=== PATIENT | female | born 1985 | race Caucasian/White ===

== ENCOUNTER 2020-08-27 10:47 | Emergency (ER) | payer OTHER ==
[~2020-08-27] VITALS: Ht 170.2 cm; Wt 49.9 kg
[2020-08-27 11:10] VITALS: BP 101/63
[2020-08-27] MEDS ORDERED: BACTRIM DS TAB1 EAC1 PO (11:16)
[2020-08-27 12:32] LABS: URINE BILIRUBIN NEGATIVE (Negative); URINE BLOOD NEGATIVE (Negative); URINE CLARITY CLEAR; URINE COLOR YELLOW; URINE GLUCOSE-RANDOM* NEGATIVE (Negative); URINE KETONES NEGATIVE (Negative); URINE LEUKOCYTES-REFLEX NEGATIVE (Negative); URINE NITRITE-REFLEX NEGATIVE (Negative); URINE PROTEIN (DIPSTICK) NEGATIVE (Negative); URINE UROBILINOGEN 0.2 E.U./dl (0.2-1.0)
[2020-08-27] MEDS ORDERED: DICLOFENAC SOD100 G1 TOP (12:40)
[2020-08-27] MEDS ORDERED: CYCLOBENZAPRINE5 MG PO (12:40)
[2020-08-27] MEDS ORDERED: TRAMADOL 50 MG50 MG PO ×2 (12:40→12:44)
== END 2020-08-27 14:08 | disposition home or self-care (01) ==
LOC: ER 10:47
PROVIDERS: Physician Assistant
DX: G89.29 Other chronic pain (principal); M54.5 Low back pain; J44.9 Chronic obstructive pulmonary disease, unspecified; F17.200 Nicotine dependence, unspecified, uncomplicated; Z88.6 Allergy status to analgesic agent